=== PATIENT | male | born 1950 | race African-American/Black ===

== ENCOUNTER 2017-02-16 11:38 | Day surgery (SDC) | payer OTHER ==
[~2017-02-16] VITALS: Ht 180.3 cm; Wt 116.0 kg
[~2017-02-16 11:38] MED LIST: ASPI81 PO; LISI2.5T55 PO; ROSU5 PO
[2017-02-16] MEDS ORDERED: ASPIRIN 81 MG CHEW TAB PO SCH (12:30)
[2017-02-16] MEDS ORDERED: NS 1000P @30 MLS/HR (KVO) IV SCH (12:30)
[2017-02-16 12:47] VITALS: BP 158/81; PULSE 53; RESP 18; TEMP 97.8; O2SAT 98
[2017-02-16] MEDS ORDERED: ALLO100T PO (12:54)
[2017-02-16 13:06] LABS: AUTOMATED NEUTROPHIL # 3.7 TH/MM3 (1.8-7.7); BASOPHIL % 0.5 % (0.0-2.0); EOSINOPHIL # 0.3 TH/MM3 (0-0.4); EOSINOPHIL % 5.1 % (0.0-4.0); HEMATOCRIT 43.7 % (39.0-51.0); HEMO FLAGS DIFF FINAL; LYMPHOCYTE # 1.8 TH/MM3 (1.0-4.8); MEAN CELL VOLUME 88.4 FL (80.0-100.0); MEAN CORPUSCULAR HEMOGLOBIN 29.3 PG (27.0-34.0); MEAN CORPUSCULAR HGB CONC 33.2 % (32.0-36.0); MONO % 6.5 % (0.0-8.0); NEUT % 59.9 % (16.0-70.0); PLATELET COUNT 146 TH/MM3 (150-450); RED BLOOD COUNT 4.94 MIL/MM3 (4.50-5.90); RED CELL DISTRIBUTION WIDTH 15.3 % (11.6-17.2); WHITE BLOOD COUNT 6.2 TH/MM3 (4.0-11.0)
[2017-02-16] MEDS ORDERED: BYST10TA2 PO (13:12)
[2017-02-16] MEDS ORDERED: ROSU10 PO (13:12)
[2017-02-16] MEDS ORDERED: BENI20TA3 PO (13:12)
[2017-02-16] MEDS ORDERED: ASPI81TA11 PO (13:12)
[2017-02-16] MEDS ORDERED: AMLO5 PO (13:12)
[2017-02-16 13:16] LABS: APTT (PATIENT) 30.7 SEC (24.3-30.1); PROTHROMBIN TIME - PATIENT 10.6 SEC (9.8-11.6)
[2017-02-16] MEDS ORDERED: HEPARIN-NS/PF INJ 500 ML ONE (13:18)
[2017-02-16 13:20] LABS: ANION GAP 9 MEQ/L (5-15); AST (GOT) 26 U/L (15-37); BICARBONATE 26.9 MEQ/L (21.0-32.0); BLOOD UREA NITROGEN 24 MG/DL (7-18); CHLORIDE 103 MEQ/L (98-107); GLOMERULAR FILTRATION RATE 48 ML/MIN (>89); POTASSIUM 3.8 MEQ/L (3.5-5.1); SODIUM (NA) 139 MEQ/L (136-145)
[2017-02-16 13:21] LABS: ALT (GPT) 41 U/L (12-78)
[2017-02-16 13:23] LABS: ALKALINE PHOSPHATASE 71 U/L (45-117); TOTAL BILIRUBIN ADULT 0.8 MG/DL (0.2-1.0)
--- NOTE | 2017-02-16 14:01 | CATHPROC ---
[employer] HIS Report Study Information Study Number Admission Scheduled Start Study Start [id number] Feb 16 2017 11:38AM 02/16/2017 Feb 16 2017 1:03PM [place] [facility] Cardiac Catheterization Admit Source Facility Department Other [facility] - Merchandise Collector Physician and Clinical Staff Initial Rober Julian Electrification AdviserLindsey Pérez,TREMAYNE Electrification AdviserTelma Simmons,TREMAYNE Other cathlab, cathlab Recorder Shannan Whitaker,FILLING AND PACKING SUPERVISOR TECH2 Scrub Jarred Alfaro RCIS(BS) Procedures Performed Procedure Location (Site) Vessel Name Coronary Angiograms LCA Left Coronary Coronary Angiograms RCA Right Coronary Coronary Angiograms DOWELL-LAD Left Coronary Coronary Angiograms SVG-OM CIRC Coronary Angiograms Gft. Stump 1 SVG Graft L Heart Cath LV Gram-hand inj. LV LV Ventricle Wire insertion Fem Art (right) Femoral Art Equipment Time Narrow Fabric Loom Fixer Description Size Mfg Part Number Used/Scraped TRANSDUCER, TRUWAVE [id number] 13:23 NEVAREZ TRAN * Used W/STOCKCOCK *[id number] [id number] *[id number] [id number] *[id number] [id number] *[id number] 13:23 MEDLINE INDUSTRIES PACK, CCL CUSTOM * Used *[id number] 13:23 Andrew Michaels Ltd PACER PEN, SKIN DUAL W/ RULER * Used *[id number] 13:23 LaunchHear WIRE, 3MMJ .035 180CM 180CM Used *[id number] 13:23 NAMIC MANIFOLD, 4 PORT * Used *[id number] 13:23 NYCOMED OMNIPAQUE, 350 MG, 150ML 150ML [id number] Used [id number] 13:23 EDMONDS MEDICAL BLANKET,WARM AIR CCL * Used *[id number] 13:23 TERUMO MEDICAL SHEATH, FR4 TERUMO (10CM) FR 4 Used *[id number] History: Current Medications Medication Dosage/Unit Route Frequency Last Date/Time Taken ASA CRESTOR NORVASC Glucophage History: Allergies Allergy Reaction No Known Allergies Metoprolol Swelling History: Risk Factors Family History of Hypertension Dyslipidemia Previous CA Previous Heart Failure Premature CAD Yes Yes No No No Prior Valve Prior PCI Prior CABG Prior CABGDate Surgery No No Yes 04/01/2003 Cerebrovascular Peripheral Artery Chronic Lung On Dialysis Diabetes Disease Disease Disease No No No No No History: Other Disease Selection Items Gerd HTN History: CA/CV Data Previous CABG Date 04/01/2003 Labs Hgb (g/dl) Hct (%) RBC (MIL/MM3) WBC (l/cumm) Platelets (thousands) 11.60-17.00 35.00-51.00 4.00-5.90 4.00-11.00 150.00-450.00 14.5 43.7 4.9 6.2 146 Glucose (mg/dl) BUN (mg/dl) Creatinine (mg/dl) BUN:Creatinine (1:x) 74.00-106.00 7.00-18.00 0.50-1.30 10.00-20.00 91 24 1.7 14.1 Na (meq/l) K (meq/l) Cl (meq/l) CO2 (mmol/L) Ca (mg/dl) 136.00-145.00 3.50-5.10 98.00-107.00 21.00-32.00 8.50-10.10 139 3.8 103 26.9 9.6 PT (sec) PTT (sec) INR (PTT:PT) 9.80-11.60 24.30-30.10 0.90-1.10 10.6 30.7 1 Medication Medication Total Dose (Bolus/Oral) Medication Total Dosage/Unit 1% XYLOCAINE 20 mL Medications (Bolus/Oral) Medication Time Given Dosage/Unit Administered By Reason 1% XYLOCAINE 02/16/2017 1:33:49 PM 20 mL Rober Santiago 20 mL 1% XYLOCAINE given in lab by Rober Santiago in Right Groin via Subcutaneous. Ordered by Rober Cordon. Medication (Drip) Medication Time Given Dosage/Unit Concentration/Unit Diluent (ml) Solution IV Solutions 02/16/2017 1:19:21 PM 0 mL (IV) 500 NaCl .9 IV Solutions given in lab by Lindsey Marks, TREMAYNE in Left Forearm via Peripheral IV. Pump/Drip Flow = 20 ml/hr using NaCl .9. Ordered by Rober Santiago. Initial Case Assessment Cardiovascular HR NIBP 52 150/79 Circulatory - Right Pulses Dorsalis Pedis Femoral 3 1 Scale (0,1,2,3,4,d) Circulatory - Left Pulses Dorsalis Pedis Femoral 3 1 Scale (0,1,2,3,4,d) Neurological State Oriented to time-place- Alert Moves all extremities person Respiration - General Respiration Rate SpO2 (%) (B/min) 17 100 Final Case Assessment Cardiovascular HR NIBP 59 152/79 Circulatory - Right Pulses Dorsalis Pedis Femoral 3 1 Scale (0,1,2,3,4,d) Circulatory - Left Pulses Dorsalis Pedis Femoral 3 1 Scale (0,1,2,3,4,d) Neurological State Oriented to time-place- Alert Moves all extremities person Respiration - General Respiration Rate SpO2 (%) (B/min) 20 100 Chronological Log Time Study Chronological Log 13:14:01 Patient arrived via Bed. 13:14:02 Patient Name, D.O.B, / Armband Verified By R.N. 13:14:03 Consent signed by the physician and the patient and verified by the Merchandise Collector staff. Vitals capture started with the following parameters, Patient=Adult, Interval=5 min, Initial Pr galwak=216 mmHg, 13:18:02 Deflation Rate=5 mmHg, Cuff placed on Right Arm 13:19:13 Pre-op and post- op instructions given; patient acknowledges understanding of instructions. 13:19:15 Patient has been NPO for More than 6Hrs. 13:19:16 Skin Breakdown- 13:19:17 Patient Warmer Placed on the Table. 13:19:18 Shad Prominences Protected 13:19:21 A # 20 IV was noted in the Forearm (left). Grade = 0 IV Solutions given in lab by Lindsey Marks, RN in Left Forearm via Peripheral IV. Pump/Drip F low = 20 ml/hr using 13:19:21 NaCl .9. Ordered by Rober Santiago. 13:19:22 HR=52 bpm, VZWH=733/79 mmhg, YqU4=386.0 %, Resp=17 B/min, Pain=0, Amanda=10, Yancey=2 13:19:22 History and physical on the chart or being dictated. Assessment: Initial Case, HR=52 BPM, MKHG=102/79 mmhg Right Pulses: Guero Ped=3, Femoral=1 13:19:23 Left Pulses: Guero Ped=3, Femoral=1 Neurological: State=Alert, Ox3, PADILLA Respiration: Resp=17 B/min, MfO0=456 % 13:22:08 Bilateral groins prepped with 2% chlorhexidine, and with a 3 min. waiting time. 13:23:46 HR=50 bpm, QBIN=317/89 mmhg, CuE6=045.0 %, Resp=12 B/min, Pain=0, Amanda=10, Yancey=2 13:28:43 HR=52 bpm, SYME=764/88 mmhg, SpO2=95.0 %, Resp=14 B/min, Pain=0, Amanda=10, Yancey=2 13:29:25 Pressure channel 1 zero failed. 13:29:46 Pressure channel 1 zeroed. 13:29:51 Reference ECG taken Time Out. Correct patient, correct procedure,correct physician, power injector not loaded with contrast with surgical 13:33:30 team present. Time Out Concurred by , individual staff in procedure 13:33:47 Case Start 20 mL 1% XYLOCAINE given in lab by Rober Santiago in Right Groin via Subcutaneous. Ordered by Pamela, 13:33:49 Rober. 13:34:15 HR=51 bpm, HYYP=939/90 mmhg, DoQ3=431.0 %, Resp=17 B/min, Pain=0, Amanda=10, Yancey=2 13:34:30 Access site was Right Femoral Artery. 13:34:37 A SHEATH, FR4 TERUMO (10CM) FR 4 was advanced into the Fem Art (right) using the Modified S eldinger technique. A JR 4.0 INFINITI CATHETER FR 4 was advanced over a wire. OMNIPAQUE, 350 MG, 150ML 150ML was us ed for 13:35:04 injections. Recorded Pressure: LV, HR=53, Condition=Condition 1 13:35:53 (Left Ventricle) LV 171/6/16 13:36:06 The LV was manually injected with 10 cc's and visualized. OMNIPAQUE, 350 MG, 150ML 150ML us ed. Recorded Pressure: LV, Ao, HR=54, Condition=Condition 1 13:36:10 (Left Ventricle) LV 166/7/15, (Aorta) Ao 168/84/116 13:36:31 The RCA was injected and visualized at various angles. OMNIPAQUE, 350 MG, 150ML 150ML used . Recorded Pressure: Ao, HR=51, Condition=Condition 1 13:36:40 (Aorta) Ao 155/79/107 13:37:54 The SVG-OM was injected and visualized at various angles. OMNIPAQUE, 350 MG, 150ML 150ML us ed. 13:38:46 HR=52 bpm, CDXV=816/82 mmhg, DoY8=951.0 %, Resp=15 B/min, Pain=0, Amanda=10, Yancey=2 13:40:39 A WIRE, 3MMJ .035 180CM 180CM was inserted via Fem Art (right). 13:40:45 Wire removed 13:41:40 The DOWELL-LAD was injected and visualized at various angles. OMNIPAQUE, 350 MG, 150ML 150ML used. 13:43:14 Catheter was removed A MPA-2 INFINITI CATHETER FR 4 was advanced over a wire. OMNIPAQUE, 350 MG, 150ML 150ML was us ed for 13:43:15 injections. 13:43:49 HR=55 bpm, GGPC=423/82 mmhg, SpO2=97 %, Resp=15 B/min, Pain=0, Amanda=10, Yancey=2 13:45:03 The Gft. Stump 1 was injected and visualized at various angles. OMNIPAQUE, 350 MG, 150ML 1 50ML used. 13:45:23 Catheter was removed A JL 4.0 INFINITI CATHETER FR 4 was advanced over a wire. OMNIPAQUE, 350 MG, 150ML 150ML was u sed for 13:45:25 injections. 13:46:47 The LCA was injected and visualized at various angles. OMNIPAQUE, 350 MG, 150ML 150ML use d. 13:47:29 Catheter was removed 13:48:48 HR=59 bpm, NXKW=538/79 mmhg, YmY0=451.0 %, Resp=20 B/min, Pain=0, Amanda=10, Yancey=2 13:50:09 Case End 13:50:20 Catheter(s) removed without difficulty 13:50:24 Sheath(s) left in place, will be removed in Holding Area 13:50:50 Sterile dressing applied to site 13:50:51 No case complications noted. 13:50:53 Cine recording checked. 13:50:57 Bedside Report will be given. 13:51:01 Contrast Scanned 13:51:08 A Left Heart Cath was performed. 13:51:43 Vitals capture stopped. Assessment: Final Case, HR=59 BPM, SJKO=162/79 mmhg Right Pulses: Guero Ped=3, Femoral=1 13:51:48 Left Pulses: Guero Ped=3, Femoral=1 Neurological: State=Alert, Ox3, PADILLA Respiration: Resp=20 B/min, PsU0=038 % End Study - Contrast Media Used In Study Contrast Total Opened (mL) Total Used (mL) Total Wasted (mL) Omnipaque 105 105 0 End Study - Maximum Contrast Load Max Contrast Load (mL) 341.8 End Study - Radiation Exposure Fluoro Time (minutes) 5.0 End Study - Patient Disposition Complications Transferred To Interventional Outcome No Telemetry Bed successful
[2017-02-16] MEDS ORDERED: MISC INFORMATION XX ONE (14:15)
[2017-02-16] MEDS ORDERED: SODIUM CHLORIDE 0.9% FLUSH 10 ML FLUSH PRN (14:15)
[2017-02-16] MEDS ORDERED: IOHEXOL 350 MG/ML 50 ML BTL (for Cath Lab) OTHER ONE (16:15)
[2017-02-16] MEDS ORDERED: IOHEXOL 350 MG/ML 100 ML BTL (for Cath Lab) OTHER ONE (16:15)
[2017-02-16] MEDS ORDERED: SODIUM CHLORIDE 0.9% FLUSH 10 ML FLUSH SCH (21:00)
--- NOTE | 2017-02-17 12:36 | MA ---
cc: ZACK ALEXANDER M.D. DATE 02/16/2017 PROCEDURE PERFORMED Left heart catheterization, left ventriculography, coronary angiography, saphenous vein angiography, DOWELL angiography. INDICATION 1. Moderate sized fixed defect in the posterior wall and inferior wall, small reversible defect in the anterior wall. 2. EF 51%. 3. Chronic renal insufficiency. 4. Coronary artery disease status post CABG. 5. Hypertension. 6. Moderate risk nuclear stress test. PROCEDURE The patient was brought to the Cardiac Catheterization Laboratory, prepped and draped in the usual sterile fashion. 10 cc of 1% lidocaine was used to locally anesthetize the right common femoral artery. A 4-Gibraltarian sheath was subsequently placed in the right common femoral artery. 4-Gibraltarian JR-4, JL-4 and multipurpose catheters were used to perform left and right coronary angiography, left ventriculography. FINDINGS LV pressure is 175/8-9 or 10. Ejection fraction is 60%. The right coronary artery is dominant and has a long proximal 20% stenosis. The right LYLE has mild diffuse disease up to 20-30% angiographically in the ostial proximal segment. The right PDA has an ostial 70-75% stenosis that extends into the proximal segment. The angulation between the right PDA and right LYLE is probably 30-40 degrees. I do not see any competitive flow in the right coronary artery or the LYLE/PDA system. The right LYLE trifurcates in the mid segment. The medial branch has a proximal mid 40-50% stenosis. The SVG to distal obtuse marginal vessel is widely patent. There is retrograde filling of the AV groove and left circumflex vessel which then fills a small distal posterolateral artery and a more proximal small to medium-sized marginal vessel. No flow was seen proximal to this marginal vessel. The DOWELL to the LAD is widely patent. There is retrograde filling of the LAD to a point of occlusion at a proximal mid-septal batch mixer operator vessel. Two small diagonal vessels estimated at 0.5 mm in diameter were seen proximal to the DOWELL insertion. The LAD beyond the graft insertion site appears to have mild diffuse disease up to 30% angiographically. The LAD is transapical. Would estimate the vessel diameter at 2.5 to maybe 2.75 mm in diameter. The vein graft to the right coronary is occluded at the ostium. The left main coronary artery has a distal 90% stenosis. The left circumflex vessel is occluded after the second obtuse marginal vessel. First and second obtuse marginal vessels are very small at 0.5 to 1 mm in diameter. Beyond the second obtuse marginal vessel there is a 40-50% circumflex vessel stenosis. Then there is filling of a medium-sized obtuse marginal vessel with competitive flow coming retrograde from the more distal marginal vessel which is grafted, as detailed above. The LAD is occluded after the first diagonal artery. There is competitive flow seen at that point, however, but no competitive flow seen in the diagonal vessel. The diagonal vessel is a medium-sized vessel with a proximal 60% stenosis. CONCLUSIONS 1. Angiographically severe three-vessel coronary disease in a right-dominant system. 2. Fixed defect in the posterior wall, mid-inferior wall with no wall motion abnormality on ventriculography. 3. Two of three grafts patent, as detailed above. 4. The patient is completely asymptomatic. RECOMMENDATIONS 1. If the patient develops symptoms, could consider PCI of the left main which would be technically less difficult and/or PCI of the ostial right PDA which would be technically more difficult given the fact that it is at a bifurcation with a 30-40 degree angulation with a medium to large sized posterolateral artery. Would only consider this if the patient fails optimal medical therapy and has moderate to severe chest pain which, as previously mentioned, he is currently asymptomatic. 2. Otherwise recommend continue aspirin 81 mg daily, Crestor 10 mg daily. 3. Treat to LDL level less than 70. 4. The patient has been given 1 liter of normal saline prior to the procedure. 5. He has been instructed to follow up with my office on Saturday February 18, 2017, for further evaluation and follow-up. MD KEVIN Moreno/NIGEL /1:53 PM /12:07 PM
--- NOTE | 2017-02-17 13:51 | EKG ---
Date Performed: 02/16/2017 Time Performed: 12:55:14 PTAGE: 67 years EKG: Sinus bradycardia with 1st degree A-V block. Septal T wave changes are nonspecific Since pr evious tracing, no significant change noted Abnormal ECG PREVIOUS TRACING : 07/14/2012 22.13 DOCTOR: Avinash Duke Interpretating Date/Time 02/17/2017 13:49:54
== END 2017-02-16 16:31 | disposition home or self-care (01) ==
LOC: HDOC 11:38 → HDIC 11:40 → HDOC 16:31
PROVIDERS: ATTEND Internal Medicine Interventional Cardiology
DX: I25.10 Atherosclerotic heart disease of native coronary artery without angina pectoris (principal); I10 Essential (primary) hypertension; K21.9 Gastro-esophageal reflux disease without esophagitis; R53.81 Other malaise; R53.83 Other fatigue; E78.00 Pure hypercholesterolemia, unspecified; R06.83 Snoring; R06.00 Dyspnea, unspecified; Z01.818 Encounter for other preprocedural examination
CPT/HCPCS: 80053; 85025; 85610; 85730; 93005; 93459; C1769; C1893; J1644; J7030; Q9967

== ENCOUNTER 2017-03-06 07:08 | Day surgery (SDC) | payer OTHER ==
[2017-03-06] VITALS (9 sets, daily range): BP systolic 145–176; BP diastolic 75–89; PULSE 45–50; RESP 18; TEMP 97.7–98; O2SAT 97–100
[~2017-03-06] VITALS: Ht 180.3 cm; Wt 114.6 kg
[~2017-03-06 07:08] MED LIST changes: +ALLO100T PO; +AMLO5 PO; -ASPI81 PO; +ASPI81TA11 PO; +BENI20TA3 PO; +BYST10TA2 PO; -LISI2.5T55 PO; +ROSU10 PO; -ROSU5 PO
[2017-03-06] MEDS ORDERED: ASPIRIN 81 MG CHEW TAB PO SCH (08:00)
[2017-03-06 08:20] LABS: AUTOMATED NEUTROPHIL # 4.3 TH/MM3 (1.8-7.7); BASOPHIL % 0.6 % (0.0-2.0); EOSINOPHIL # 0.4 TH/MM3 (0-0.4); EOSINOPHIL % 4.7 % (0.0-4.0); HEMATOCRIT 40.8 % (39.0-51.0); HEMO FLAGS DIFF FINAL; LYMPH % 34.5 % (9.0-44.0); LYMPHOCYTE # 2.7 TH/MM3 (1.0-4.8); MEAN CELL VOLUME 88.2 FL (80.0-100.0); MEAN CORPUSCULAR HEMOGLOBIN 29.9 PG (27.0-34.0); MEAN CORPUSCULAR HGB CONC 33.9 % (32.0-36.0); MONO % 6.1 % (0.0-8.0); NEUT % 54.1 % (16.0-70.0); PLATELET COUNT 134 TH/MM3 (150-450); RED BLOOD COUNT 4.63 MIL/MM3 (4.50-5.90); RED CELL DISTRIBUTION WIDTH 15.2 % (11.6-17.2); WHITE BLOOD COUNT 7.9 TH/MM3 (4.0-11.0)
[2017-03-06 08:32] LABS: INTERNATIONAL NORMALIZED RATIO 0.9 RATIO; PROTHROMBIN TIME - PATIENT 10.3 SEC (9.8-11.6)
[2017-03-06 08:39] LABS: BICARBONATE 26.1 MEQ/L (21.0-32.0); POTASSIUM 3.6 MEQ/L (3.5-5.1)
[2017-03-06] MEDS ORDERED: HEPARIN-NS/PF INJ 500 ML ONE (10:23)
[2017-03-06] MEDS ORDERED: HEPARIN SODIUM - IV 10,000 UNITS/10 ML VIAL ONE (10:24)
[2017-03-06] MEDS ORDERED: MIDAZOLAM HCL 2 MG/2 ML VIAL ONE (10:25)
[2017-03-06] MEDS ORDERED: IOHEXOL 350 MG/ML 100 ML BTL (for Cath Lab) OTHER ONE (10:35)
[2017-03-06] MEDS ORDERED: CLOPIDOGREL 300 MG TAB ONE (10:48)
[2017-03-06] MEDS ORDERED: TIROFIBAN INFUSION INJ 250 ML IV ONE (10:48)
[2017-03-06] MEDS ORDERED: SODIUM CHLORIDE 0.9% FLUSH 10 ML FLUSH PRN (11:00)
[2017-03-06] MEDS ORDERED: MISC INFORMATION XX ONE (11:00)
[2017-03-06] MEDS ORDERED: CLOPIDOGREL 300 MG TAB PO ONE (11:00)
[2017-03-06] MEDS ORDERED: BACITRACIN OINT 0.9 GM PKT TOP ONE (11:00)
--- NOTE | 2017-03-06 11:15 | CATHPROC ---
[employer] HIS Report Study Information Study Number Admission Scheduled Start Study Start [id number] Mar 06 2017 7:08AM 03/06/2017 Mar 06 2017 10:22AM [place] [facility] Cardiac Catheterization Admit Source Facility Department Other [facility] - Radiation Protection Engineer Physician and Clinical Staff Initial Rober Julian Telemarketing ManagerLindsey Pérez,TREMAYNE Telemarketing ManagerFox Stratton RN Recorder Cherie Delgado,FINAL ASSEMBLER TECH2 Scrub Hosterman, James,RT(R) Procedures Performed Procedure Location (Site) Vessel Name Coronary Angiograms LCA Left Coronary Stent Lft Main Left Coronary Wire insertion Fem Art (right) Femoral Art Equipment Time Varnish Dipper Description Size Mfg Part Number Used/Scraped [id number] 10:36 [employer] WIRE, ASAHI PROWATER 180CM 180CM Used *[id number] TRANSDUCER, TRUWAVE [id number] 10:30 NEVAREZ TRAN * Used W/STOCKCOCK *[id number] *[id number] 10:30 Eveo INDUSTRIES PACK, CCL CUSTOM * Used *[id number] 10:30 Eveo PACER PEN, SKIN DUAL W/ RULER * Used *[id number] 10:46 MEDTRONIC STENT, 3.0 9 INTEGRITY 3.0 9 Used *[id number] 10:50 [employer]ra [employer] MEDICAL 30 CASSIE INDEFLATOR Used *[id number] 10:43 [employer]ra [employer]ations MEDICAL SHEATH, FR6.5 PRELUDE 11CM FR 6.5 038ACT Used *[id number] 10:30 Colizer WIRE, 3MMJ .035 180CM 180CM Used *2423515 [id number] 10:30 NAMIC MANIFOLD, 4 PORT * Used *[id number] 10:30 NYCOMED OMNIPAQUE, 350 MG, 150ML 150ML [id number] Used [id number] 10:30 [employer] MEDICAL BLANKET,WARM AIR CCL * Used *[id number] Equipment Model, Serial, Lot Number and Expiration Data Description Model Number Serial Number Lot Number Expiration Date STENT, 3.0 9 INTEGRITY [id number] 09-03-2018 History: Current Medications Medication Dosage/Unit Route Frequency Last Date/Time Taken ASA CRESTOR NORVASC Allopurinol LOPRESSOR History: Allergies Allergy Reaction No Known Allergies Metoprolol Swelling History: Risk Factors Family History of Hypertension Dyslipidemia Previous MA Previous Heart Failure Premature CAD Yes Yes Yes Yes No Prior Valve Prior PCI Prior CABG Prior CABGDate Surgery No No Yes 04/07/2012 Cerebrovascular Peripheral Artery Chronic Lung On Dialysis Diabetes Disease Disease Disease No No No No No History: Symptoms/Diagnosis Selection Items Chest pain History: CV Disease Selection Items Known CAD History: Stress Tests Stress or Imaging Studies Performed No History: Other Disease Selection Items Gerd HTN History: MA/CV Data Previous CABG Date 04/07/2012 History: Other Current Smoker No Labs Hgb (g/dl) Hct (%) WBC (l/cumm) Platelets (thousands) 11.60-17.00 35.00-51.00 4.00-11.00 150.00-450.00 13.8 40.8 7.9 134 Glucose (mg/dl) BUN (mg/dl) Creatinine (mg/dl) BUN:Creatinine (1:x) 74.00-106.00 7.00-18.00 0.50-1.30 10.00-20.00 101 28 1.5 18.7 Na (meq/l) K (meq/l) 136.00-145.00 3.50-5.10 137 3.6 INR (PTT:PT) 0.90-1.10 0.9 Medication Medication Total Dose (Bolus/Oral) Medication Total Dosage/Unit 1% XYLOCAINE 20 mL AGGRASTAT BOLUS 58 mL HEPARIN 8100 units PLAVIX 600 mg Medications (Bolus/Oral) Medication Time Given Dosage/Unit Administered By Reason 1% XYLOCAINE 03/06/2017 10:39:58 AM 20 mL Rober Santiago 20 mL 1% XYLOCAINE given in lab by Rober Santiago in Right Groin via Subcutaneous. HEPARIN 03/06/2017 10:42:40 AM 8100 units Fox Yu 8100 units HEPARIN given in lab by Fox Yu RN in Left Forearm via Peripheral IV. Ordered by Rober Abdullahi. AGGRASTAT BOLUS 03/06/2017 10:53:46 AM 58 mL Fox Yu 58 mL AGGRASTAT BOLUS given in lab by Fox Yu RN in Left Forearm via Peripheral IV. Ordered by Rober Santiago. PLAVIX 03/06/2017 11:00:08 AM 600 mg Fox Yu 600 mg PLAVIX given in lab by Fox Yu RN via Oral. Ordered by Rober Santiago. Medication (Drip) Medication Time Given Dosage/Unit Concentration/Unit Diluent (ml) Solution AGGRASTAT DRIP 03/06/2017 10:55:53 AM 0.15 mcg/kg/min 12.5 mg 250 NaCl .9 0.15 mcg/kg/min AGGRASTAT DRIP given in lab by Fox Yu RN in Left Forearm via Peripheral IV. P ump/Drip Flow = 20.88 ml/hr using NaCl .9 with a concentration of 12.5 mg in 250 ml. Ordered by Rober Santiago. IV Solutions 03/06/2017 10:25:57 AM 0 mL (IV) 500 NaCl .9 Patient arrived on IV Solutions in Left Forearm via Peripheral IV. Pump/Drip Flow = 20 ml/hr using Na Cl .9. Initial Case Assessment Cardiovascular HR Rhythm NIBP Chest Pain 52 sb 188/89 0 Circulatory - Right Pulses Dorsalis Pedis Femoral 3 3 Scale (0,1,2,3,4,d) Circulatory - Left Pulses Dorsalis Pedis Femoral 3 3 Scale (0,1,2,3,4,d) Neurological State Oriented to time-place- Alert Moves all extremities person Respiration - General Respiration Rate SpO2 (%) (B/min) 20 100 Final Case Assessment Cardiovascular HR Rhythm NIBP Chest Pain 54 sb 182/93 0 Circulatory - Right Pulses Dorsalis Pedis Femoral 3 3 Scale (0,1,2,3,4,d) Circulatory - Left Pulses Dorsalis Pedis Femoral 3 3 Scale (0,1,2,3,4,d) Neurological State Oriented to time-place- Alert Moves all extremities person Respiration - General Respiration Rate SpO2 (%) (B/min) 17 100 Chronological Log Time Study Chronological Log 10:18:35 Patient arrived via Bed. 10:18:40 Patient Name, D.O.B, / Armband Verified By R.N. 10:21:46 Consent signed by the physician and the patient and verified by the Radiation Protection Engineer staff. 10:21:46 Pre-op and post- op instructions given; patient acknowledges understanding of instructions. 10:21:47 Verbal Stimulation=2 Physical Stimulation=2 Airway=2 Respiration=2 TOTAL=8. (0=absent, 1=li mited, 2=present) Vitals capture started with the following parameters, Patient=Adult, Interval=5 min, Initial Pr psvezq=570 mmHg, 10:24:11 Deflation Rate=5 mmHg, Cuff placed on Left Leg 10:25:20 Reference ECG taken 10:25:43 HR=48 bpm, TBQQ=402/89 mmhg, ZsN0=841.0 %, Resp=0 B/min 10:25:44 Patient has been NPO for More than 6Hrs. 10:25:45 Skin Breakdown-none 10::46 Shad Prominences Protected 10:25:48 A # 20 IV was noted in the Forearm (left). Grade = 0 10:25:57 Patient arrived on IV Solutions in Left Forearm via Peripheral IV. Pump/Drip Flow = 20 ml/h r using NaCl .9. 10:26:21 History and physical on the chart or being dictated. Assessment: Initial Case, HR=52 BPM, Rhythm=sb, VLKW=345/89 mmhg, Chest Pain=0 Right Pulses: Guero Ped=3, Femoral=3 10:26:24 Left Pulses: Guero Ped=3, Femoral=3 Neurological: State=Alert, Ox3, PADILLA Respiration: Resp=20 B/min, GtM9=064 % 10:29:56 Bilateral groins prepped with 2% chlorhexidine, and with a 3 min. waiting time. 10:30:29 HR=50 bpm, SUXK=152/96 mmhg, SdN6=291.0 %, Resp=19 B/min 10:34:30 MD paged 10:35:09 Pressure channel 1 zeroed. 10:35:33 HR=55 bpm, ZQSH=671/92 mmhg, NjF3=640.0 %, Resp=19 B/min 10:36:24 MD arrived. 10:39:44 HR=53 bpm, JGHP=435/85 mmhg, FoP2=873.0 %, Resp=15 B/min Time Out. Correct patient, correct procedure,correct physician, power injector not loaded with contrast with surgical 10:39:52 team present. Time Out Concurred by MD, individual staff in procedure 10:39:57 Case Start 10:39:58 20 mL 1% XYLOCAINE given in lab by Rober Santiago in Right Groin via Subcutaneous. 10:41:47 Access site was Right Femoral Artery. 10:41:49 A SHEATH, FR6.5 PRELUDE 11CM FR 6.5 was advanced into the Fem Art (right) using the Percuta neous technique. A XB 3.5 GUIDE CATHETER FR 6 was advanced over a wire. OMNIPAQUE, 350 MG, 150ML 150ML was used for 10:42:04 injections. 10:42:40 8100 units HEPARIN given in lab by Fox Yu RN in Left Forearm via Peripheral IV. Ord ered by Rober Santiago. Recorded Pressure: Ao, HR=54, Condition=Condition 1 10:43:20 (Aorta) Ao 181/89/124 10:43:55 The LCA was injected and visualized at various angles. OMNIPAQUE, 350 MG, 150ML 150ML used . 10:45:14 A WIRE, ASAHone and Strop PROWATER 180CM 180CM was inserted via Fem Art (right). 10:45:29 HR=61 bpm, VNVK=770/90 mmhg, SpO2=98.0 %, Resp=12 B/min, Pain=0, Yancey=2 An STENT, 3.0 9 INTEGRITY 3.0 9 Bare Metal Stent was inserted through a XB 3.5 GUIDE CATHETER F R 6 over a 10:48:23 WIRE, ASAHI PROWATER 180CM 180CM. A STENT, 3.0 9 INTEGRITY 3.0 9 was deployed using a 30 CASSIE INDEFLATOR at 10 atmospheres for 15 seconds in the 10:49:33 t Main. 10:49:59 HR=57 bpm, IWGO=742/93 mmhg, SpO2=99.0 %, Resp=19 B/min 10:49:59 Delivery device removed 10:50:12 Wire removed 10:50:14 Catheter was removed 10:50:19 Case End 10:50:24 Activated Clotting Time Drawn 10:50:49 In the Fem Art (right) the SHEATH, FR6.5 PRELUDE 11CM FR 6.[address] by James Sneed RT(R). 10:51:05 Sterile dressing applied to site 10:51:06 No case complications noted. 10:51:07 Cine recording checked. Assessment: Final Case, HR=54 BPM, Rhythm=sb, ZQOT=292/93 mmhg, Chest Pain=0 Right Pulses: Guero Ped=3, Femoral=3 10:51:09 Left Pulses: Guero Ped=3, Femoral=3 Neurological: State=Alert, Ox3, PADILLA Respiration: Resp=17 B/min, DgV6=857 % 58 mL AGGRASTAT BOLUS given in lab by Fox Yu RN in Left Forearm via Peripheral IV. Ord ered by Pamela, 10:53:46 Rober. 10:55:26 ACT (Normal Range 90-180) = 314 10:55:37 HR=49 bpm, IJPS=427/136 mmhg, KaC8=703.0 %, Resp=12 B/min 0.15 mcg/kg/min AGGRASTAT DRIP given in lab by Fox Yu RN in Left Forearm via Periphera l IV. Pump/Drip Flow 10:55:53 = 20.88 ml/hr using NaCl .9 with a concentration of 12.5 mg in 250 ml. Ordered by Ayush Santiago. 11:00:08 600 mg PLAVIX given in lab by Fox Yu RN via Oral. Ordered by Rober Santiago. 11:00:30 Vitals capture stopped. 11:02:37 Patient moved to BED 11:04:52 Patient transported to DOCU End Study - Contrast Media Used In Study Contrast Total Opened (mL) Total Used (mL) Total Wasted (mL) Omnipaque 70 70 0 End Study - Maximum Contrast Load Max Contrast Load (mL) 386.7 End Study - Radiation Exposure Fluoro Time (minutes) 2.4 End Study - Patient Disposition Complications Transferred To Interventional Outcome No Telemetry Bed successful
[2017-03-06] MEDS: HYDROCHLOROTHIAZIDE 12.5 MG CAP PO SCH (12:00)
[2017-03-06] MEDS: ATORVASTATIN 20 MG TAB PO SCH (12:00)
[2017-03-06] MEDS: NEBIVOLOL 10 MG TAB PO SCH (12:00)
[2017-03-06] MEDS: amLODIPine BESYLATE 5 MG TAB PO SCH (12:00)
[2017-03-06] MEDS: LOSARTAN 50 MG TAB PO SCH (12:00)
--- NOTE | 2017-03-06 14:11 | EKG ---
Date Performed: 03/06/2017 Time Performed: 08:22:18 PTAGE: 67 years EKG: Sinus bradycardia with 1st degree A-V block Compared to prior tracing no significant change Septal T wave changes are nonspecific Abnormal ECG PREVIOUS TRACING : 02/16/2017 12.55 DOCTOR: Kenneth Fajardo Interpretating Date/Time 03/06/2017 14:10:04
[2017-03-06] MEDS: TIROFIBAN INFUSION INJ 250 ML IV SCH ×2 (16:31→20:31)
[2017-03-06] MEDS: SODIUM CHLORIDE 0.9% FLUSH 10 ML FLUSH SCH (20:31)
[2017-03-06] MEDS ORDERED: ASPIRIN EC 81 MG TABEC PO SCH (21:00)
[2017-03-07] VITALS (10 sets, daily range): BP systolic 124–156; BP diastolic 79–97; PULSE 42–50; RESP 18; TEMP 97.5–97.6; O2SAT 98–100
[2017-03-07 05:34] LABS: AUTOMATED NEUTROPHIL # 4.3 TH/MM3 (1.8-7.7); BASOPHIL % 0.4 % (0.0-2.0); EOSINOPHIL # 0.4 TH/MM3 (0-0.4); EOSINOPHIL % 5.2 % (0.0-4.0); HEMATOCRIT 41.5 % (39.0-51.0); HEMO FLAGS DIFF FINAL; LYMPH % 25.3 % (9.0-44.0); LYMPHOCYTE # 1.7 TH/MM3 (1.0-4.8); MEAN CELL VOLUME 87.4 FL (80.0-100.0); MEAN CORPUSCULAR HEMOGLOBIN 29.9 PG (27.0-34.0); MEAN CORPUSCULAR HGB CONC 34.3 % (32.0-36.0); MONO % 7.2 % (0.0-8.0); NEUT % 61.9 % (16.0-70.0); PLATELET COUNT 130 TH/MM3 (150-450); RED BLOOD COUNT 4.75 MIL/MM3 (4.50-5.90); RED CELL DISTRIBUTION WIDTH 14.8 % (11.6-17.2); WHITE BLOOD COUNT 6.9 TH/MM3 (4.0-11.0)
[2017-03-07 05:48] LABS: BICARBONATE 27.5 MEQ/L (21.0-32.0); POTASSIUM 4.1 MEQ/L (3.5-5.1)
[2017-03-07 05:49] LABS: HDL CHOLESTEROL 43.6 MG/DL (40.0-60.0)
[2017-03-07 06:05] LABS: CKMB 3.3 NG/ML (0.5-3.6)
--- NOTE | 2017-03-07 07:35 | MR ---
cc: ROBER ALEXANDER M.D. DATE: 03/06/2017 PROCEDURE: Direct PCI with bare metal stent of the distal left main. INDICATIONS 1. Unstable angina. 2. [place] [employer] Class IV angina, anginal equivalents, severe fatigue and diaphoresis at rest, coronary artery disease. PROCEDURE: The patient brought to the heart catheterization. Prepped and in usual sterile fashion 10 cc's of 1% lidocaine was used to locally anesthetize the right common femoral artery. A 6-[place] sheath placed in the right common femoral artery. 70 units per kg of heparin was given, ACT is 310. 6-[place] XB 3.5 guide 0.014 [employer] guidewire and 309 integrity stent were used to directly stent the distal left main, note prior to the stent deployment the stent was occlusive of the left main, no contrast would move past the stent. A stent was deployed with one inflation of 10 atmospheres, 20 seconds stenosis went from 95% to 0% KIZZY-III flow. CONCLUSION 1. New onset cardiac symptoms of severe fatigue and diaphoresis at rest. Questionable culprit of the distal left main supplying a medium-sized diagonal vessel versus an ostial right posterior descending artery. I did have a long discussion with the patient and his and told him it is uncertain whether this lesion is causing his symptoms but the patient requested PCI of this lesion. 2. Successful direct PCI bare metal stent of the distal left main from 95% to 0% KIZZY-III flow. 3. Recommend Plavix 600 mg p.o. load and then 75 mg per day for at least 12 to 15 months. 4. Aspirin 162 mg daily. 5. Medical management coronary artery disease. 6. Also start Aggrastat Per protocol. 7. Continue Crestor 10 mg daily. 8. Benicar 9. Norvasc Rober Alexander MD [facility]/ /10:54 AM /7:22 AM
[2017-03-07] MEDS ORDERED: CLOPIDOGREL 75 MG TAB PO SCH (09:00)
[2017-03-07] MEDS ORDERED: ASPIRIN 81 MG CHEW TAB PO SCH (09:00)
[2017-03-07] MEDS ORDERED: ALLOPURINOL 100 MG TAB PO SCH (09:00)
[2017-03-07] MEDS: HYDROCHLOROTHIAZIDE 12.5 MG CAP PO SCH (09:20)
[2017-03-07] MEDS: LOSARTAN 50 MG TAB PO SCH (09:21)
[2017-03-07] MEDS: NEBIVOLOL 10 MG TAB PO SCH (09:21)
[2017-03-07] MEDS: amLODIPine BESYLATE 5 MG TAB PO SCH (09:22)
[2017-03-07] MEDS: ATORVASTATIN 20 MG TAB PO SCH (09:22)
[2017-03-07] MEDS: SODIUM CHLORIDE 0.9% FLUSH 10 ML FLUSH SCH (09:23)
[2017-03-07] MEDS ORDERED: PLAV75TA29 PO (10:36)
--- NOTE | 2017-03-07 15:40 | EKG ---
Date Performed: 03/07/2017 Time Performed: 05:31:46 PTAGE: 67 years EKG: Sinus bradycardia with 1st degree A-V block Diffuse ST elevation of 1-2 mm, most compatible with early repolarization Clinical correlation is recommended Compared to prior tracing no significa nt change Abnormal ECG PREVIOUS TRACING : 03/06/2017 08.22 DOCTOR: Sami Alonzo Interpretating Date/Time 03/07/2017 15:40:30
== END 2017-03-07 11:45 | disposition home or self-care (01) ==
LOC: HDOC 07:08 → HDIC 07:14 → HCIS 16:05 → HDOC 03-07 11:45
PROVIDERS: ATTEND Internal Medicine Interventional Cardiology
DX: I25.110 Atherosclerotic heart disease of native coronary artery with unstable angina pectoris (principal); I10 Essential (primary) hypertension; Z79.01 Long term (current) use of anticoagulants
CPT/HCPCS: 80048; 80061; 82550; 82552; 85002; 85025; 85347; 85610; 85730; 92928; 93005; 93454; C1769; C1876; C1887; C1893; J1644; J2250; J3010; J3246; Q9967